=== PATIENT | female | born 1975 | race Caucasian/White ===

== ENCOUNTER 2018-07-11 12:58 | Emergency (ER) | payer MEDICAID ==
[~2018-07-11] VITALS: Ht 162.6 cm; Wt 63.5 kg
[2018-07-11 14:39] VITALS: BP 110/71
--- NOTE | 2018-07-11 14:39 | NUR ---
Patient discharged to home in stable conditon. Written and verbal after care instructions given. Patient verbalizes understanding of instructions.
== END 2018-07-11 14:41 | disposition home or self-care (01) ==
LOC: ER 12:58
DX: J45.909 Unspecified asthma, uncomplicated (principal)
CPT/HCPCS: 71045; A4663